=== PATIENT | female | born 1970 | race Caucasian/White ===

== ENCOUNTER → 2018-02-23 10:11 | Day surgery (SDC) | payer OTHER ==
[~2018-02-23 10:11] MED LIST: Acetaminophen TAB* 325 MG ONE; Acetylcysteine CAP (RENAL)* 600 MG PO ONE; Flumazenil* 0.1 MG/ML 5 ML MDV ONE; Heparin 2 UNITS/ML IVPREMIX* 2,000 ML IV ONE; Heparin(*) 1000 UNIT/ML 10 ML VIAL CATH LAB IV ONE; Iodixanol* (CONTRAST) 320 MG/ML 100 ML SDV ONE; Lidocaine 1% INJ* 10 MG/ML 30 ML SDV ONE; Midazolam* 1 MG/ML 10 ML VIAL (10 MG) ONE; NS 0.9% 1000 ML* 1,000 ML IV SCH; Naloxone* 0.4 MG/ML 1 ML VIAL ONE; VERAPAMIL 2.5 MG/ML 2 ML VIAL ** 5 mg/2 ml ONE; fentaNYL* 50 MCG/ML 2 ML VIAL (100 MCG VIAL) ONE; nitroGLYCERIN DRIP* 25,000 MCG/250 ML BTL ONE
[2018-02-23 17:25] VITALS: BP 163/83
--- NOTE | 2018-02-23 22:09 | CATH ---
CC: HERIBERTO Suero; Dr. Lai; Dr. Christopher CATH REPORT: DATE OF PROCEDURE: 02/23/18 PRIMARY CARE PROVIDER: HERIBERTO Suero, [facility]. DIESEL SERVICE TECHNICIAN: Dr. Lai. RODDING MACHINE TENDER: Dr. Christopher. PROCEDURES: Right radial artery access, bilateral selective coronary cineangiography, left heart cat heterization. HISTORY: A 47-year-old woman with morbid obesity, hypertension, CKD stage 3, referred for coronary a ngiography because of functional class 2 to 3 exertional dyspnea, and stress imaging with intermediat e risk anteroapical ischemia. Noninvasive testing revealed normal LV function with mild aortic stenos is. PROCEDURE ACCESS: Right radial artery sheath 6F slender. MEDICATIONS: 1. Subcu lidocaine. 2. IV Versed. 3. IV fentanyl. 4. Heparin 3000 units. 5. Verapamil 3 mg. 6. Nitroglycerin 300 mcg IA. DIAGNOSTIC CATHETER: 5F TIG-4, which was also used for left heart catheterization. HEMODYNAMICS: Initial BP 188/109, LV 152/5-11, 20 to 25 mm peak aortic valve gradient on pullback. ANGIOGRAPHY: The right radial was imaged because she developed mild discomfort with advancement of t he micropuncture wire. The sheath was therefore placed partway in, aspirated with free blood return, the cocktail was given, angiogram was then performed, which demonstrated the radial artery to be pat ent, not tortuous, with mild spasm. This was easily traversed with a Wholey wire, and the 5F TIG-4 c atheter, which was wiped with lidocaine. The patient was adequately sedated. RCA: The RCA is dominant, moderate in size, supplies a moderate PDA, has no stenosis. Left Main: The left main is large, has no stenosis. LAD: The LAD is large, smooth, extends past the apex, the LAD supplies a moderate to diagonal, the L AD has no stenosis. Circumflex: The circumflex is large, not dominant, supplies several small marginals, a large margina l branch, ends with a moderate posterolateral branch. The circumflex has no stenosis. CONCLUSION: 1. No significant obstructive coronary disease, false positive stress imaging study. 2. Mild aortic stenosis. 3. Successful right radial artery access. [id number]/[facility] #: [id number]
== END | disposition home or self-care (01) ==
LOC: CHICATH 10:11
PROVIDERS: ATTEND Internal Medicine Cardiovascular Disease
DX: R06.02 Shortness of breath (principal); R07.89 Other chest pain; R94.31 Abnormal electrocardiogram [ECG] [EKG]; R00.0 Tachycardia, unspecified; I35.0 Nonrheumatic aortic (valve) stenosis; I49.3 Ventricular premature depolarization; I49.1 Atrial premature depolarization; G47.33 Obstructive sleep apnea (adult) (pediatric); E78.4 Other hyperlipidemia; E66.01 Morbid (severe) obesity due to excess calories; N18.3 Chronic kidney disease, stage 3 (moderate); I12.9 Hypertensive chronic kidney disease with stage 1 through stage 4 chronic kidney disease, or unspecified chronic kidney disease; R06.09 Other forms of dyspnea; E11.9 Type 2 diabetes mellitus without complications; Z79.84 Long term (current) use of oral hypoglycemic drugs; Z79.899 Other long term (current) drug therapy; J45.909 Unspecified asthma, uncomplicated; Z87.891 Personal history of nicotine dependence; D64.9 Anemia, unspecified; E03.9 Hypothyroidism, unspecified
CPT/HCPCS: 93458; 99156; 99157; A9270-GY; J1644; J2250; J2310; J3010